=== PATIENT | male | born 1995 | race African-American/Black ===

== ENCOUNTER 2017-10-03 19:40 | Emergency (ER) | payer MEDICAID ==
[~2017-10-03] VITALS: Ht 195.6 cm; Wt 63.6 kg
[2017-10-03 20:00] VITALS: BP 101/55
== END 2017-10-03 20:16 | disposition left against medical advice (07) ==
LOC: ER 19:59
DX: R55 Syncope and collapse (principal); Z53.21 Procedure and treatment not carried out due to patient leaving prior to being seen by health care provider